=== PATIENT | female | born 1945 | race Caucasian/White ===

== ENCOUNTER 2017-01-22 00:20 | Emergency (ER) | payer MEDICARE ==
[~2017-01-22] VITALS: Ht 170.2 cm; Wt 70.0 kg
[2017-01-22] MEDS ORDERED: ONDANSETRON 2MG/ML, 2ML ONE (00:49)
[2017-01-22] MEDS ORDERED: MORPHINE SULFATE 4 MG/ML, 1ML ONE (00:49)
[2017-01-22] MEDS ORDERED: SODIUM CHLORIDE 0.9% 1,000ML IVBOLUS ONE (01:00)
[2017-01-22] MEDS ORDERED: MORPHINE SULFATE 4 MG/ML, 1ML IVPush PRN (01:00)
[2017-01-22] MEDS ORDERED: SODIUM CHLORIDE FLUSH 10ML SYR IVF ONE (01:00)
[2017-01-22] MEDS ORDERED: ONDANSETRON 2MG/ML, 2ML IVPush ONE (01:00)
[2017-01-22 01:13] LABS: ASPARTATE AMINO TRANSFERASE 14 U/L (15-37); BLOOD UREA NITROGEN 6 mg/dL (7-18)
[2017-01-22 01:19] LABS: HEMATOCRIT 41.2 % (34.6-47.8); HEMOGLOBIN 13.9 g/dL (11.7-16.4); WHITE BLOOD COUNT 3.6 x10^3/uL (3.4-10)
[2017-01-22] MEDS ORDERED: OMNIPAQUE 350 MG/ML, 100ML BOTTLE ONE (02:28)
[2017-01-22 03:04] VITALS: BP 114/62
== END 2017-01-22 03:09 | disposition home or self-care (01) ==
LOC: ED 01:41
DX: K52.9 Noninfective gastroenteritis and colitis, unspecified (principal); R19.7 Diarrhea, unspecified; Z90.49 Acquired absence of other specified parts of digestive tract; Z90.710 Acquired absence of both cervix and uterus; H40.9 Unspecified glaucoma; Z88.1 Allergy status to other antibiotic agents
CPT/HCPCS: 36415; 74177; 80053; 85025; 96361; 96374; 96375; 99285; J2405; J7030; Q9967

== ENCOUNTER 2017-01-27 11:27 | Inpatient (IN) | payer MEDICARE ==
[~2017-01-27] VITALS: Ht 167.6 cm; Wt 69.0 kg
[2017-01-27] MEDS ORDERED: SODIUM CHLORIDE 0.9% 1,000ML IVBOLUS ONE ×2 (12:30→13:30)
[2017-01-27] MEDS ORDERED: ONDANSETRON 2MG/ML, 2ML IVPush ONE (12:30)
[2017-01-27 13:03] LABS: HEMATOCRIT 41.1 % (34.6-47.8); HEMOGLOBIN 13.8 g/dL (11.7-16.4); WHITE BLOOD COUNT 3.8 x10^3/uL (3.4-10)
[2017-01-27 13:06] LABS: ASPARTATE AMINO TRANSFERASE 12 U/L (15-37); BLOOD UREA NITROGEN 8 mg/dL (7-18)
[2017-01-27] MEDS ORDERED: ONDANSETRON 2MG/ML, 2ML ONE (13:22)
[2017-01-27 13:24] LABS: DIFF TOTAL CELLS COUNTED 100 CELL DIFF
[2017-01-27 13:26] LABS: VERIFY COUNTS? YES
[2017-01-27 13:27] LABS: LARGE PLATELETS 1+
[2017-01-27] MEDS ORDERED: CIPR500T87 PO (13:39)
[2017-01-27] MEDS ORDERED: DIPHENOXYLATE/ATROPINE TABLET PO ONE (14:00)
[2017-01-27] MEDS ORDERED: ONDANSETRON ODT 4 MG PO PRN (16:30)
[2017-01-27] MEDS ORDERED: morphine SULFATE 10 MG/ML, 1ML IVPush PRN (16:30)
[2017-01-27] MEDS ORDERED: ACETAMINOPHEN 325 MG TABLET PO PRN (16:30)
[2017-01-27 17:26] VITALS: BP 111/73
[2017-01-27] MEDS: POTASSIUM CHLORIDE 20 MEQ in LACTATED RINGERS 1,000 ML IV SCH (18:04)
[2017-01-27 19:48] VITALS: BP 115/73
[2017-01-27] MEDS ORDERED: GOLYTELY 4,000ML ORAL.SOL PO ONE (20:00)
[2017-01-27] MEDS: FAMOTIDINE 20 MG/2 ML IVPush SCH (20:08)
[2017-01-28 01:38] VITALS: BP 108/66
[2017-01-28] MEDS: POTASSIUM CHLORIDE 20 MEQ in LACTATED RINGERS 1,000 ML IV SCH ×2 (03:16→16:43)
[2017-01-28 05:41] LABS: BLOOD UREA NITROGEN 6 mg/dL (7-18)
[2017-01-28 05:50] LABS: HEMOGLOBIN 12.4 g/dL (11.7-16.4); WHITE BLOOD COUNT 5.2 x10^3/uL (3.4-10)
[2017-01-28] MEDS: FAMOTIDINE 20 MG/2 ML IVPush SCH ×2 (08:15→22:58)
[2017-01-28] MEDS ORDERED: MIDAZOLAM 1 MG/ML, 5ML ONE (08:41)
[2017-01-28] MEDS ORDERED: FENTANYL PF 100 MCG/2ML ONE (08:41)
[2017-01-28 13:20] VITALS: BP 100/52
[2017-01-28 19:17] VITALS: BP 106/67
[2017-01-29 01:09] VITALS: BP 101/60
[2017-01-29] MEDS: POTASSIUM CHLORIDE 20 MEQ in LACTATED RINGERS 1,000 ML IV SCH ×2 (04:16→14:10)
[2017-01-29 07:19] VITALS: BP 106/65
[2017-01-29] MEDS: FAMOTIDINE 20 MG/2 ML IVPush SCH ×2 (08:11→20:52)
[2017-01-29 14:13] VITALS: BP 110/54
[2017-01-29 19:27] VITALS: BP 109/69
[2017-01-30 00:42] VITALS: BP 101/66
[2017-01-30 06:20] LABS: BLOOD UREA NITROGEN 6 mg/dL (7-18)
[2017-01-30 07:01] VITALS: BP 119/75
[2017-01-30] MEDS: FAMOTIDINE 20 MG/2 ML IVPush SCH ×2 (08:20→23:50)
[2017-01-30] MEDS ORDERED: LOPERAMIDE 2 MG CAPSULE PO PRN (11:30)
[2017-01-30 14:19] VITALS: BP 108/59
[2017-01-30] MEDS: BISMUTH SUBSALICYLATE 175 MG/5 ML MAX/STR PO SCH ×3 (14:38→23:49)
[2017-01-30] MEDS ORDERED: OMNIPAQUE 350 MG/ML, 100ML BOTTLE ONE (15:35)
[2017-01-30 19:11] VITALS: BP 91/59
[2017-01-31 02:17] VITALS: BP 101/66
[2017-01-31] MEDS: BISMUTH SUBSALICYLATE 175 MG/5 ML MAX/STR PO SCH ×5 (04:29→21:12)
[2017-01-31 05:20] LABS: BLOOD UREA NITROGEN 6 mg/dL (7-18)
[2017-01-31 06:47] VITALS: BP 96/61
[2017-01-31] MEDS: FAMOTIDINE 20 MG/2 ML IVPush SCH ×2 (07:28→21:12)
[2017-01-31] MEDS: SODIUM CHLORIDE 0.9% 1,000 ML IV SCH ×2 (10:30→21:11)
[2017-01-31 13:49] VITALS: BP 86/54
[2017-01-31] MEDS ORDERED: BUDESONIDE 3 MG CAP DR.ER PO SCH (14:00)
[2017-01-31] MEDS ORDERED: BUDESONIDE 3 MG HOMEMEDPO SCH (14:00)
[2017-01-31 19:08] VITALS: BP 91/60
[2017-02-01] MEDS: BISMUTH SUBSALICYLATE 175 MG/5 ML MAX/STR PO SCH ×4 (00:32→11:44)
[2017-02-01 02:04] VITALS: BP 97/64
[2017-02-01 05:42] LABS: BLOOD UREA NITROGEN 6 mg/dL (7-18)
[2017-02-01] MEDS: SODIUM CHLORIDE 0.9% 1,000 ML IV SCH (06:10)
[2017-02-01] MEDS: FAMOTIDINE 20 MG/2 ML IVPush SCH (07:57)
[2017-02-01 08:00] VITALS: BP 101/64
[2017-02-01] MEDS ORDERED: BUDESONIDE 3 MG CAP DR.ER PO SCH (09:00)
[2017-02-01] MEDS ORDERED: BUDE3CAP6 PO (12:59)
[2017-02-01 13:00] VITALS: BP 98/60
[2017-02-04 08:11] LABS: CHLORIDE STOOL 62 mmol/L (.); POTASSIUM STOOL 23 mmol/L (.); SODIUM STOOL 80 mmol/L (.)
== END 2017-02-01 14:43 | disposition home or self-care (01) | DRG 392 ==
LOC: ED 15:22 → EDIP 15:23 → ED 15:28 → 3NE 16:18
PROVIDERS: ADMIT Internal Medicine
PROC: 0DB58ZX Excision of Esophagus, Via Natural or Artificial Opening Endoscopic, Diagnostic (ICD-10-PCS; 2017-01-28)
PROC: 0DBK8ZX Excision of Ascending Colon, Via Natural or Artificial Opening Endoscopic, Diagnostic (ICD-10-PCS; 2017-01-28)
PROC: 0DBL8ZX Excision of Transverse Colon, Via Natural or Artificial Opening Endoscopic, Diagnostic (ICD-10-PCS; 2017-01-28)
PROC: 0DBN8ZX Excision of Sigmoid Colon, Via Natural or Artificial Opening Endoscopic, Diagnostic (ICD-10-PCS; 2017-01-28)
PROC: 0DBB8ZX Excision of Ileum, Via Natural or Artificial Opening Endoscopic, Diagnostic (ICD-10-PCS; 2017-01-28)
PROC: 0DBM8ZX Excision of Descending Colon, Via Natural or Artificial Opening Endoscopic, Diagnostic (ICD-10-PCS; 2017-01-28)
PROC: 0DBP8ZX Excision of Rectum, Via Natural or Artificial Opening Endoscopic, Diagnostic (ICD-10-PCS; 2017-01-28)
PROC: 0DB98ZX Excision of Duodenum, Via Natural or Artificial Opening Endoscopic, Diagnostic (ICD-10-PCS; principal; 2017-01-28 13:00)
PROC: 0DB68ZX Excision of Stomach, Via Natural or Artificial Opening Endoscopic, Diagnostic (ICD-10-PCS; 2017-01-28 13:00)
DX: K52.832 Lymphocytic colitis (principal); E44.1 Mild protein-calorie malnutrition; A09 Infectious gastroenteritis and colitis, unspecified; K52.9 Noninfective gastroenteritis and colitis, unspecified; E86.0 Dehydration; K57.10 Diverticulosis of small intestine without perforation or abscess without bleeding; R22.9 Localized swelling, mass and lump, unspecified; K62.1 Rectal polyp; E87.6 Hypokalemia; R63.4 Abnormal weight loss; H40.9 Unspecified glaucoma; Z88.2 Allergy status to sulfonamides; Z90.710 Acquired absence of both cervix and uterus; Z82.0 Family history of epilepsy and other diseases of the nervous system; Z84.89 Family history of other specified conditions; Z79.899 Other long term (current) drug therapy; Z90.49 Acquired absence of other specified parts of digestive tract; Z90.722 Acquired absence of ovaries, bilateral; Z68.24 Body mass index [BMI] 24.0-24.9, adult
CPT/HCPCS: 36415; 74177; 80048; 80053; 81001; 82438; 82533; 82705; 83631; 83735; 83993; 84100; 84302; 84443; 84586; 84999; 85025; 85651; 86140; 87046; 87324; 87328; 87329; 88305; 88341; 88342; 89055; 96374; 99152; 99153; J2250; J2405; J3010; J3480; Q9967; G0461; J7030; J7120; S0028